=== PATIENT | female | born 1995 | race American Indian/Alaskan Native ===

== ENCOUNTER 2019-03-19 22:23 | Emergency (ER) | payer MEDICAID ==
[2019-03-19] MEDS ORDERED: Hydrocortisone/Neomycin/Polymyxin B Otic Susp 10 ML Bottle EARBOTH ONE (23:53)
[2019-03-19] MEDS ORDERED: Acetaminophen/HYDROcodone 325-5 MG Tab PO ONE (23:55)
[2019-03-19] MEDS ORDERED: Amoxicillin/Clavulanate K 875-125 MG Tab PO ONE (23:57)
--- NOTE | 2019-03-20 | EDM.PDOC ---
ED HPI GENERAL MEDICAL PROBLEM - General Chief Complaint: ENT Problem Stated Complaint: EAR ACHE BOTH SIDES Time Seen by Provider: 03/19/19 23:48 Source of Information: Reports: Patient History Limitations: Reports: No Limitations - History of Present Illness INITIAL COMMENTS - FREE TEXT/NARRATIVE: patient comes emergency department today with complaints of bilateral ear pain. Lites for the past 2-3 days she has had increasing pain and pressure bilaterally on her ears. She has not had any drainage from her ears. She has some muffled hearing. No fever no chills. No headache. She has not been swimming recently. She thinks that she has another ear canal infection because she cleans her ears on a regular basis with Q-tips and has had these in the past. He has tried some Tylenol with minimal improvement.No difficulty swallowing. No vertigo or visual acuity changes. Bilateral Ear Pain Score (Numeric/FACES): 10 - Related Data Allergies Allergy/AdvReac Type Severity Reaction Status Date / Time No Known Allergies Allergy Verified 03/19/19 23:50 Home Meds: Home Meds . [No Known Home Meds] 03/19/19 [History] ED ROS ENT - Review of Systems Review Of Systems: Comprehensive ROS is negative, except as noted in HPI. ED EXAM, ENT - Physical Exam Exam: See Below Exam Limited By: No Limitations General Appearance: Alert, WD/WN, No Apparent Distress Eye Exam: Bilateral Eye: Normal Inspection Ears: Auricular Erythema, Auricular Tenderness, Canal Discharge (she placed swimmers ear drops in bilateral ears just prior to coming to the ED. ), Canal Swelling, Other (tragus tenderness). No: Hearing Loss, Auricular Ecchymosis, Mastoid Swelling, Mastoid Tenderness, Canal Blood, Canal Foreign Body, TM Bulging (Unable to visualize the TMs due to the canal swelling. ) Nose: Normal Inspection, Normal Mucousa, No Blood Mouth/Throat: Normal Inspection, Normal Gums, Normal Lips, Normal Oropharynx, Normal Teeth Head: Atraumatic, Normocephalic Neck: Normal Inspection, Supple, Non-Tender, Full Range of Motion Respiratory/Chest: No Respiratory Distress, Lungs Clear, No Accessory Muscle Use Cardiovascular: Normal Peripheral Pulses, Regular Rate, Rhythm Extremities: Normal Inspection, Normal Capillary Refill Neurological: Alert, Oriented, CN II-XII Intact, Normal Cognition, No Motor/ Sensory Deficits Psychiatric: Normal Affect, Normal Mood Lymphatic: No Adenopathy Course - Vital Signs Last Recorded V/S: Last Vital Signs Temp 36.6 C 03/19/19 23:35 Pulse 136 H 03/19/19 23:35 Resp 16 03/19/19 23:35 BP 126/74 03/19/19 23:35 Pulse Ox 99 03/19/19 23:35 - Orders/Labs/Meds Meds: Medications Discontinued Medications Generic Name Dose Route Start Last Admin Trade Name Lori PRN Reason Stop Dose Admin Hydrocodone Bitart/Acetaminophen 1 tab 03/19/19 23:55 03/20/19 00:06 Kenedy 325-5 Mg PO 03/19/19 23:56 1 tab ONETIME ONE Administration Amoxicillin/Clavulanate Potassium 1 tab 03/19/19 23:57 03/20/19 00:06 Augmentin 875 Mg/125 Mg PO 03/19/19 23:58 1 tab ONETIME ONE Administration Neomycin/Polymyxin/Hydrocortisone 1 ml 03/19/19 23:53 03/20/19 00:07 Cortisporin Otic Susp EARBOTH 03/19/19 23:54 1 applic ONETIME ONE Administration - Re-Assessments/Exams Free Text/Narrative Re-Assessment/Exam: 03/20/19 01:12 patient clearly has otitis externa bilaterally. I'm unable to visualize the tympanic membranes. They do not have any ear jairo to help with the administration of the medication to the ear canal. I will start her on polymyxin neomycin and hydrocortisone as we do not have Ciprodex in the emergency department. Augmentin to ensure that she does not have an otitis media. Hydrocodone for pain. I will have her switch to the Ciprodex when she is able to get to the pharmacy as this medication is shown superior to the other medication. Hydrocodone for pain. I also discussed the importance of not cleaning her ears with Q-tips that she has recurrent otitis externa. There is no mastoid bogginess or concern for mastoiditis. The patient is comfortable with this plan and her questions answered. Departure - Departure Time of Disposition: 00:01 Disposition: Home, Self-Care 01 Clinical Impression: Otitis externa Qualifiers: Otitis externa type: unspecified type Chronicity: acute Laterality: bilateral Qualified Code(s): H60.503 - Unspecified acute noninfective otitis externa, bilateral - Discharge Information Instructions: Otitis Externa, [id number], Ear Drops, Adult, [id number] Referrals: PCP,None [Primary Care Provider] - Forms: ED Department Discharge Additional Instructions: Tylenol and or Ibuprofen as needed for pain. DO NOT CLEAN YOUR EARS WITH Q tips at any time. For tonight until you get to the pharmacy, Ozjamtso-Ynlsbnlhi-Psrsjlfhzbubeq drops, 4 drops to each ear 4 times a day. Bottle sent home from the ED. Once you get to the pharmacy, Stop using the above drops and start using Cipro/ Dex 4 drops twice daily for a total of 10 days. RX given to the patient. Augmentin, 1 tab by mouth twice daily for the next 10 days. If pain not controlled with above. Kenedy 1 tablet every 6 hrs as needed for pain. Caution sedation. RX given to the patient #8. Return to the ED if new or worsening symptoms. Follow up with PCP in the next 7 days if not improving sooner if worse. Sepsis Event Note - Evaluation Sepsis Screening Result: No Definite Risk - Focused Exam Vital Signs: Vital Signs Temp Pulse Resp BP Pulse Ox 03/19/19 23:35 36.6 C 136 H 16 126/74 99 Date Exam was Performed: 03/20/19 Time Exam was Performed: 01:09 - Assessment/Plan Assessment:: Bilateral otitis externa Plan: Tylenol and or Ibuprofen as needed for pain. DO NOT CLEAN YOUR EARS WITH Q tips at any time. For tonight until you get to the pharmacy, Jjlojqvj-Uonoymhcd-Uioedmibbidljn drops, 4 drops to each ear 4 times a day. Bottle sent home from the ED. Once you get to the pharmacy, Stop using the above drops and start using Cipro/ Dex 4 drops twice daily for a total of 10 days. RX given to the patient. Augmentin, 1 tab by mouth twice daily for the next 10 days. If pain not controlled with above. Kenedy 1 tablet every 6 hrs as needed for pain. Caution sedation. RX given to the patient #8. Return to the ED if new or worsening symptoms. Follow up with PCP in the next 7 days if not improving sooner if worse.
== END 2019-03-20 00:15 | disposition home or self-care (01) ==
LOC: DL.ED 22:23
DX: H60.503 Unspecified acute noninfective otitis externa, bilateral (principal)
CPT/HCPCS: 99283; A9270

== ENCOUNTER 2022-12-12 20:50 | Emergency (ER) | payer SELFPAY ==
[2022-12-12 21:47] LABS: BASOPHILS PERCENT AUTO 0.1 % (0.0-1.0); HEMATOCRIT 38.7 % (37.0-47.0); HEMOGLOBIN 13.3 g/dL (12.0-16.0); LYMPHOCYTES PERCENT AUTO 8.1 % (20.5-50.1); MEAN CORPUSCULAR HGB CONC 34.4 g/dL (33.0-35.0); MEAN CORPUSCULAR VOLUME 87.2 fL (80-100); MONOCYTES PERCENT AUTO 10.9 % (2-8); NEUTROPHILS PERCENT AUTO 80.9 % (42.2-75.2); PLATELET COUNT,PLT 153 10^3/uL (150-450); RED BLOOD CELL COUNT 4.44 10^6/uL (4.2-5.4); WHITE BLOOD CELL COUNT,WBC 8.4 10^3/uL (5.0-10.0)
[2022-12-12 22:07] LABS: A/G RATIO 0.73; ALANINE AMINOTRANSFERASE,ALT 17 U/L (14-59); ALBUMIN 3.2 g/dL (3.4-5.0); ALKALINE PHOSPHATASE 83 U/L (46-116); ANION GAP 16.4 mEq/L (7-13); ASPARTATE AMNIOTRANSFERASE,AST 12 U/L (15-37); BILIRUBIN TOTAL 0.4 mg/dL (0.2-1.0); BLOOD UREA NITROGEN,BUN 7 mg/dL (7-18); BUN/CREATININE RATIO 8.1 (No establ ref range); CALCIUM 8.1 mg/dL (8.5-10.1); CARBON DIOXIDE,CO2 22 mmol/L (21-32); CHLORIDE,CL 102 mmol/L (98-107); CREATININE 0.86 mg/dL (0.55-1.02); EST CRCL DRUG DOSING (CG) 76.11 mL/min; ESTIMATED GFR 97 mL/min (>=60); GLUCOSE RANDOM 118 mg/dL (70-99); HCG QUALITATIVE,SERUM NEGATIVE (NEGATIVE); POTASSIUM,K 3.4 mmol/L (3.5-5.1); PROTEIN TOTAL,TP 7.6 g/dL (6.4-8.2); SODIUM,NA 137 mmol/L (136-145)
[2022-12-12] MEDS ORDERED: diphenhydrAMINE 50 MG Cap PO ONE (22:15)
== END 2022-12-12 22:42 | disposition home or self-care (01) ==
LOC: DL.ED 20:50
DX: L50.0 Allergic urticaria (principal); F17.210 Nicotine dependence, cigarettes, uncomplicated
CPT/HCPCS: 36415; 80053; 84703; 85025; 99283; Q0163

== ENCOUNTER 2023-05-22 02:40 | Emergency (ER) | payer SELFPAY ==
[2023-05-22 03:51] LABS: BASOPHILS PERCENT AUTO 0.1 % (0.0-1.0); EOSINOPHILS PERCENT AUTO 0.8 % (1.0-3.0); HEMATOCRIT 40.1 % (37.0-47.0); HEMOGLOBIN 13.9 g/dL (12.0-16.0); LYMPHOCYTES PERCENT AUTO 25.8 % (20.5-50.1); MEAN CORPUSCULAR HEMOGLOBIN 30.5 pg (27.0-34.0); MEAN CORPUSCULAR HGB CONC 34.7 g/dL (33.0-35.0); MEAN CORPUSCULAR VOLUME 88.1 fL (80-100); MONOCYTES PERCENT AUTO 7.7 % (2-8); NEUTROPHILS PERCENT AUTO 65.6 % (42.2-75.2); PLATELET COUNT,PLT 200 10^3/uL (150-450); RED BLOOD CELL COUNT 4.55 10^6/uL (4.2-5.4)
[2023-05-22 03:55] LABS: INR 0.9 (0.9-1.2); PROTHROMBIN TIME 9.3 SEC (9.0-12.0); PTT,PARTIAL THROMBOPLSTIN TIME 27.2 SEC (22.0-34.0)
[2023-05-22 04:23] LABS: A/G RATIO 0.9; ALBUMIN 3.6 g/dL (3.4-5.0); ANION GAP 13.9 mEq/L (7-13); BILIRUBIN TOTAL 0.3 mg/dL (0.2-1.0); BUN/CREATININE RATIO 19.7 (No establ ref range); CALCIUM 8.5 mg/dL (8.5-10.1); CREATININE 0.71 mg/dL (0.55-1.02); EST CRCL DRUG DOSING (CG) 95.8 mL/min; POTASSIUM,K 3.9 mmol/L (3.5-5.1); PROTEIN TOTAL,TP 7.6 g/dL (6.4-8.2)
[2023-05-22] MEDS ORDERED: Tranexamic Acid 1,000 MG in Sodium Chloride 0.9% 500 ML IV ONE (04:51)
[2023-05-22] MEDS: Ondansetron 4 MG/2 ML SDV IVPUSH ONE (05:29)
[2023-05-22] MEDS: HYDROmorphone 1 MG/ML Syringe IVPUSH ONE (05:31)
[2023-05-22] MEDS: Sodium Chloride 0.9% 10 ML Syringe FLUSH PRN (05:33)
[2023-05-22] MEDS: Tranexamic Acid 1,000 MG in Sodium Chloride 0.9% 100 ML IV ONE (05:33)
[2023-05-22] MEDS: Ondansetron 4 MG/2 ML SDV ONE (05:38)
== END 2023-05-22 05:54 | disposition home or self-care (01) ==
LOC: DL.ED 02:40
DX: O03.9 Complete or unspecified spontaneous abortion without complication (principal); F17.210 Nicotine dependence, cigarettes, uncomplicated; Z86.16 Personal history of COVID-19
CPT/HCPCS: 36415; 76801; 80053; 84702; 85025; 85610; 85730; 86850; 86900; 86901; 96374; 96375; 99284; 99284-25; J1170; J2405; J3490

== ENCOUNTER 2023-10-03 14:53 | Emergency (ER) | payer SELFPAY | END 2023-10-03 15:25 | disposition home or self-care (01) | LOC: DL.ED 14:53 | DX: H60.93 Unspecified otitis externa, bilateral (principal); Z79.899 Other long term (current) drug therapy; Z86.16 Personal history of COVID-19 | CPT/HCPCS: 99282 ==

== ENCOUNTER 2024-03-24 13:18 | Inpatient (IN) | payer BC ==
[2024-03-24] MEDS ORDERED: Carboprost Tromethamine 250 MCG/1 ML Amp IM PRN ×2 (14:31→15:19)
[2024-03-24] MEDS ORDERED: Calcium Gluconate 10% 1 GM/10 ML SDV IV PRN (14:31)
[2024-03-24] MEDS ORDERED: Methylergonovine 0.2 MG/1 ML Amp IM PRN ×2 (14:31→15:19)
[2024-03-24] MEDS ORDERED: Sodium Chloride 0.9% 10 ML Syringe FLUSH PRN ×2 (14:31→15:19)
[2024-03-24] MEDS ORDERED: Calcium Gluconate 10% 1 GM/10 ML SDV IVPUSH PRN (14:37)
[2024-03-24] MEDS: Labetalol 20 MG/4 ML Syringe IVPUSH ONE (14:44)
[2024-03-24] MEDS ORDERED: Magnesium Sulfate/Water 20 GM/500 ML Premix Bag IV SCH (14:45)
[2024-03-24] MEDS: Magnesium Sulfate/Water Premix 4 GM in Premix Bag 1 BAG IV ONE (14:53)
[2024-03-24] MEDS: Lactated Ringers 1,000 ML IV SCH (14:55)
[2024-03-24] MEDS: Labetalol 20 MG/4 ML Syringe ONE (15:06)
[2024-03-24] MEDS: Misoprostol 50 MCG (1/2 of 100 MCG) Tab VAG SCH (15:14)
[2024-03-24] MEDS: Magnesium Sulfate/Water Premix 20 GM in Premix Bag 1 BAG IV SCH (15:18)
[2024-03-24] MEDS ORDERED: Ondansetron 4 MG/2 ML SDV IVPUSH PRN (15:19)
[2024-03-24] MEDS ORDERED: Tranexamic Acid 1,000 MG in Sodium Chloride 0.9% 100 ML IV PRN (15:19)
[2024-03-24] MEDS ORDERED: Oxytocin/Lactated Ringers 30 UNIT/500 ML BAG IV SCH (15:30)
[2024-03-24] MEDS: Penicillin G Potassium 5 MILLUNITS in Sodium Chloride 0.9% 100 ML IV ONE (16:16)
[2024-03-24] MEDS: Magnesium Sulfate/Water Premix 100 ML ONE (16:40)
[2024-03-24] MEDS: Lidocaine 1% 30 ML SDV INJECT ONE (17:43)
[2024-03-24] MEDS ORDERED: Nalbuphine HCl 10 MG/ 1ML Amp IM PRN (19:24)
[2024-03-24] MEDS: Misoprostol 100 MCG Tab PO ONE (19:53)
[2024-03-24] MEDS: Penicillin G Potassium 3 MILLUNITS in Sodium Chloride 0.9% 100 ML IV SCH (19:54)
[2024-03-24] MEDS: Acetaminophen 325 MG Tab PO PRN (21:09)
[2024-03-24] MEDS: hydrOXYzine HCl 25 MG Tab PO PRN (21:09)
[2024-03-25] MEDS: Misoprostol 25 MCG (1/4 of 100 MCG) Tab VAG PRN
[2024-03-25] MEDS: Labetalol 20 MG/4 ML Syringe IVPUSH ONE (06:10)
[2024-03-25] MEDS: Labetalol 20 MG/4 ML Syringe ONE (06:35)
[2024-03-25] MEDS: Oxytocin/Lactated Ringers 30 UNIT/500 ML BAG IV SCH (09:07)
[2024-03-25] MEDS: Lactated Ringers 1,000 ML IV SCH (09:14)
[2024-03-25] MEDS ORDERED: fentaNYL 100 MCG/2 ML SDV ONE (11:50)
[2024-03-25] MEDS ORDERED: Bupivacaine 0.25% 10 ML SDV ONE (11:50)
[2024-03-25] MEDS ORDERED: ePHEDrine 50 MG/ML SDV IVPUSH PRN (12:14)
[2024-03-25] MEDS ORDERED: Phenylephrine HCl In 0.9% NaCl 1 MG/10 ML Syringe IVPUSH PRN (12:14)
[2024-03-25] MEDS ORDERED: Ropivacaine 200 MG in Premix Bag 1 BAG EPIDUR SCH (12:15)
[2024-03-25] MEDS: Lactated Ringers 1,000 ML IV ONE (13:34)
[2024-03-25] MEDS: Ondansetron 4 MG/2 ML SDV IVPUSH PRN (14:15)
[2024-03-25 18:31] LABS: BASOPHILS PERCENT AUTO 0.1 % (0.0-1.0); EOSINOPHILS PERCENT AUTO 0.2 % (1.0-3.0); HEMATOCRIT 36.4 % (37.0-47.0); HEMOGLOBIN 11.6 g/dL (12.0-16.0); LYMPHOCYTES PERCENT AUTO 8.1 % (20.5-50.1); MEAN CORPUSCULAR HEMOGLOBIN 27.2 pg (27.0-34.0); MEAN CORPUSCULAR HGB CONC 31.9 g/dL (33.0-35.0); MEAN CORPUSCULAR VOLUME 85.4 fL (80-100); MONOCYTES PERCENT AUTO 6.2 % (2-8); NEUTROPHILS PERCENT AUTO 85.4 % (42.2-75.2); PLATELET COUNT,PLT 203 10^3/uL (150-450); RED BLOOD CELL COUNT 4.26 10^6/uL (4.2-5.4); WHITE BLOOD CELL COUNT,WBC 13.1 10^3/uL (5.0-10.0)
[2024-03-25] MEDS: Tranexamic Acid 1,000 MG in Sodium Chloride 0.9% 100 ML IV PRN (19:59)
[2024-03-25] MEDS ORDERED: Sodium Chloride 0.9% 10 ML Syringe FLUSH PRN (20:09)
[2024-03-25] MEDS ORDERED: Misoprostol 100 MCG Tab RECTAL PRN (20:09)
[2024-03-25] MEDS ORDERED: Simethicone 80 MG Tab.Chew PO PRN (20:09)
[2024-03-25] MEDS ORDERED: Oxytocin 10 Units/1 ML SDV IM PRN (20:09)
[2024-03-25] MEDS ORDERED: Witch Hazel Medicated Pads 100/Jar TOP PRN (20:09)
[2024-03-25] MEDS: Ibuprofen 800 MG Tab PO SCH (21:40)
[2024-03-25] MEDS: Lidocaine 1% 30 ML SDV INJECT ONE (22:49)
[2024-03-26 06:41] LABS: HEMATOCRIT 33.2 % (37.0-47.0); HEMOGLOBIN 10.8 g/dL (12.0-16.0); MEAN CORPUSCULAR HEMOGLOBIN 27.8 pg (27.0-34.0); MEAN CORPUSCULAR HGB CONC 32.5 g/dL (33.0-35.0); MEAN CORPUSCULAR VOLUME 85.3 fL (80-100); RED BLOOD CELL COUNT 3.89 10^6/uL (4.2-5.4); WHITE BLOOD CELL COUNT,WBC 13.3 10^3/uL (5.0-10.0)
[2024-03-26] MEDS: Ferrous Sulfate 325 MG Tab PO SCH (07:22)
[2024-03-26] MEDS: Prenatal Multivitamin with Calcium/Folic Acid/Iron Tab PO SCH (07:22)
[2024-03-26] MEDS: Docusate Sodium 100 MG Cap PO PRN (07:22)
[2024-03-26] MEDS: Benzocaine/Menthol 20%-0.5% Spray 78 GM Cannister TOP PRN (20:54)
[2024-03-27] MEDS ORDERED: fentaNYL 100 MCG/2 ML SDV EPIDUR ONE (11:50)
[2024-03-27] MEDS ORDERED: Ropivacaine 100 ML EPIDUR ONE (11:50)
[2024-03-27] MEDS ORDERED: Ketorolac 30 MG/ML SDV IVPUSH ONE (11:50)
[2024-03-27] MEDS ORDERED: Bupivacaine 0.25% 10 ML SDV NERVRT ONE (11:50)
[2024-03-27] MEDS ORDERED: Lactated Ringers 1,000 ML IV ONE (11:50)
[2024-03-27] MEDS ORDERED: Ondansetron 4 MG/2 ML SDV IV ONE (11:50)
== END 2024-03-27 11:36 | disposition home or self-care (01) | DRG 560 ==
LOC: DL.OBCHECK 13:18 → DL.OB 14:31 → OBSVTOIN 03-25 19:56
PROVIDERS: ADMIT Family Medicine; ATTEND Family Medicine
PROC: 10E0XZZ Delivery of Products of Conception, External Approach (ICD-10-PCS; principal; 2024-03-25)
PROC: 10907ZC Drainage of Amniotic Fluid, Therapeutic from Products of Conception, Via Natural or Artificial Opening (ICD-10-PCS; 2024-03-25)
PROC: 0U7C7ZZ Dilation of Cervix, Via Natural or Artificial Opening (ICD-10-PCS; 2024-03-25)
PROC: 3E0P7VZ Introduction of Hormone into Female Reproductive, Via Natural or Artificial Opening (ICD-10-PCS; 2024-03-25)
PROC: 3E0DXGC Introduction of Other Therapeutic Substance into Mouth and Pharynx, External Approach (ICD-10-PCS; 2024-03-25)
PROC: 3E0R3BZ Introduction of Anesthetic Agent into Spinal Canal, Percutaneous Approach (ICD-10-PCS; 2024-03-25)
PROC: 00HU33Z Insertion of Infusion Device into Spinal Canal, Percutaneous Approach (ICD-10-PCS; 2024-03-25)
DX: O14.14 Severe pre-eclampsia complicating childbirth (principal); Z37.0 Single live birth; O99.824 Streptococcus B carrier state complicating childbirth; Z3A.36 36 weeks gestation of pregnancy
CPT/HCPCS: 36415; 51702; 59409; 76815; 83735; 85025; 85027; A9270-GY; J0665; J1885; J1920; J2405; J2540; J2795; J3010; J3475; J3490; J7120